=== PATIENT | female | born 1950 | race Caucasian/White ===

== ENCOUNTER → 2016-03-23 | Outpatient (CLI) | payer OTHER ==
[~2016-03-23] MED LIST: AMLO2.5T PO; ASPI81TA28 PO; ATOR-26 PO; CLOP1TAB15 PO; CLX20 PO; ERGO500037 PO; GABA300C19 PO; INSDGI SC; ISOS-11 PO; JNV100 PO; LATA0.5S OPB; LEVO150T9 PO; LISI10TA PO; METF-384 PO; METO100T14 PO; NTRGSL/4 UT; NVLGI SQ; TRC145 PO; ZOLP5TAB6 PO
[2016-03-23 13:50] LABS: ALT/SGPT 22 U/L (12-78); AST/SGOT 10 U/L (15-37); BLOOD UREA NITROGEN 13 mg/dl (7-18); BUN/CREATININE RATIO 18.3 (10-20); CALCIUM 8.8 mg/dl (8.5-10.1); CARBON DIOXIDE 29 mmol/L (21-32); CHLORIDE 103 mmol/L (98-107); CREATININE 0.71 mg/dl (0.60-1.20); GLUCOSE 225 mg/dl (70-99); POTASSIUM 4.1 mmol/L (3.5-5.1); SODIUM 139 mmol/L (136-145)
[2016-03-23 13:54] LABS: ESTIMATED AVERAGE GLUCOSE 203 mg/dl; HA1C FLAG Normal (Normal)
[2016-03-23 13:56] LABS: CREATININE RANDOM URINE < 13.0 mg/dl
[2016-03-23 13:58] LABS: ALKALINE PHOSPHATASE 69 U/L (45-117); CHOLESTEROL 181 mg/dl (0-200); CHOLESTEROL/HDL RATIO 3.8; HDL CHOLESTEROL 48 mg/dl; TRIGLYCERIDES 254 mg/dl (0-150); VERY LOW DENSITY LIPOPROT CALC 51 mg/dl
[2016-03-24 14:32] LABS: THYROGLOBULIN <0.1 NG/ML (2.8-40.9)
== END | disposition home or self-care (01) ==
LOC: C.LAB1850 12:24
PROVIDERS: ATTEND Internal Medicine Endocrinology, Diabetes & Metabolism
DX: E89.0 Postprocedural hypothyroidism (principal); I25.10 Atherosclerotic heart disease of native coronary artery without angina pectoris; E78.5 Hyperlipidemia, unspecified; I10 Essential (primary) hypertension; E66.9 Obesity, unspecified; E11.42 Type 2 diabetes mellitus with diabetic polyneuropathy; F41.8 Other specified anxiety disorders; E55.9 Vitamin D deficiency, unspecified; R20.0 Anesthesia of skin; C73 Malignant neoplasm of thyroid gland

== ENCOUNTER → 2016-03-27 | Outpatient (CLI) | payer OTHER ==
--- NOTE | 2016-03-27 08:00 | DIAGNOSTIC IMAGING REPORT ---
THYROID ULTRASONOGRAPHY CLINICAL HISTORY: Thyroidectomy. Postablative study. COMPARISON STUDY: 03/27/2015 FINDINGS: There are postsurgical changes are prior thyroidectomy. No recurrent thyroid masses are visualized. There is no pathologic adenopathy. IMPRESSION: Surgically absent thyroid. No abnormalities identified. Electronically signed by: Marcelo Ragsdale M.D. 03/27/2016 7:58 AM Dictated Date/Time: 03/27/2016 7:58 AM
== END | disposition home or self-care (01) ==
LOC: C.ULTR 07:31
PROVIDERS: ATTEND Internal Medicine Endocrinology, Diabetes & Metabolism
DX: E89.0 Postprocedural hypothyroidism (principal)

== ENCOUNTER → 2016-12-09 | Outpatient (CLI) | payer OTHER ==
[~2016-12-09] MED LIST changes: +GABA-1218 PO; -GABA300C19 PO
[2016-12-09 13:39] LABS: ESTIMATED AVERAGE GLUCOSE 143 mg/dl; HA1C FLAG Normal (Normal)
== END | disposition home or self-care (01) ==
LOC: C.LAB1850 11:41
PROVIDERS: ATTEND Internal Medicine Endocrinology, Diabetes & Metabolism
DX: E11.9 Type 2 diabetes mellitus without complications (principal)

== ENCOUNTER → 2017-04-12 | Outpatient (CLI) | payer OTHER ==
[2017-04-12 15:47] LABS: ALBUMIN 3.7 gm/dl (3.4-5.0); ALT/SGPT 24 U/L (12-78); BLOOD UREA NITROGEN 17 mg/dl (7-18); CALCIUM 8.7 mg/dl (8.5-10.1); CARBON DIOXIDE 26 mmol/L (21-32); CHOLESTEROL 244 mg/dl (0-200); CREATININE 0.85 mg/dl (0.60-1.20); GLUCOSE 128 mg/dl (70-99); POTASSIUM 4.2 mmol/L (3.5-5.1); SODIUM 138 mmol/L (136-145)
[2017-04-12 15:57] LABS: ALKALINE PHOSPHATASE 54 U/L (45-117); AST/SGOT 16 U/L (15-37); TOTAL PROTEIN 7.3 gm/dl (6.4-8.2)
== END | disposition home or self-care (01) ==
LOC: C.LAB1850 14:20
PROVIDERS: ATTEND Internal Medicine Endocrinology, Diabetes & Metabolism
DX: E89.0 Postprocedural hypothyroidism (principal); I25.10 Atherosclerotic heart disease of native coronary artery without angina pectoris; E11.42 Type 2 diabetes mellitus with diabetic polyneuropathy; E78.5 Hyperlipidemia, unspecified; I10 Essential (primary) hypertension; C73 Malignant neoplasm of thyroid gland; E55.9 Vitamin D deficiency, unspecified

== ENCOUNTER → 2017-07-07 | Outpatient (CLI) | payer OTHER ==
[2017-07-07 11:46] LABS: HEMOGLOBIN A1C 6.7 % (4.5-5.6)
== END | disposition home or self-care (01) ==
LOC: C.LAB1850 09:23
PROVIDERS: ATTEND Internal Medicine Endocrinology, Diabetes & Metabolism
DX: E11.8 Type 2 diabetes mellitus with unspecified complications (principal); Z86.39 Personal history of other endocrine, nutritional and metabolic disease; E89.0 Postprocedural hypothyroidism